=== PATIENT | female | born 1970 | race Caucasian/White ===

== ENCOUNTER 2023-08-05 11:33 | Emergency (ER) | payer SELFPAY ==
[~2023-08-05] VITALS: Ht 172.7 cm; Wt 81.6 kg
[2023-08-05 11:35] VITALS: BP_SYST 154; PULSE 85; RESP 18; TEMP 98; O2SAT 100
[2023-08-05 12:14] LABS: BASOPHILS % (AUTO) 0.3 % (0.0-2.0); EOSINOPHILS # (AUTO) 0.2 K/uL (0.0-0.4); EOSINOPHILS % (AUTO) 2.1 % (0.0-4.0); HEMATOCRIT 28.6 % (36-48); HEMOGLOBIN 8.9 g/dL (12.0-16.0); LYMPHOCYTES # (AUTO) 0.7 K/uL (1.0-5.5); LYMPHOCYTES % (AUTO) 8.9 % (20.5-51.5); MEAN CORPUSCULAR HEMOGLOBIN 27 pg (27-31); MEAN CORPUSCULAR HGB CONC 31 % (32-36); MEAN CORPUSCULAR VOLUME 88 fL (79.0-98.0); MONOCYTES # (AUTO) 0.6 K/uL (0.0-1.0); MONOCYTES % (AUTO) 7.8 % (1.7-9.3); NEUTROPHILS # (AUTO) 6.6 K/uL (1.8-7.7); NEUTROPHILS % (AUTO) 80.9 % (40.0-70.0); PLATELET COUNT (AUTO) 269 K/uL (130-430); RED BLOOD CELL COUNT(AUTO) 3.26 MIL/uL (4.2-6.2); RED CELL DISTRIBUTION WIDTH 15.7 % (9.0-15.0); WHITE BLOOD COUNT (AUTO) 8.1 K/uL (4.8-10.8)
[2023-08-05 12:29] LABS: CALCIUM 10.3 mg/dL (8.4-11.0); CREATININE 3.58 mg/dL (0.55-1.30); POTASSIUM 4.6 mmol/L (3.5-5.1)
[2023-08-05 12:39] LABS: INR 1.1 (0.8-1.2)
[2023-08-05 12:43] LABS: ALBUMIN 3.3 g/dL (3.4-4.8); TOTAL BILIRUBIN 0.2 mg/dL (0.0-1.0); TOTAL PROTEIN, SERUM 6.8 g/dL (6.4-8.3)
[2023-08-05] MEDS ORDERED: HYDROcodone/ACETAMIN 7.5-325 MG TAB PO ONE (13:00)
[2023-08-05] MEDS ORDERED: CLIN-22 PO (13:44)
[2023-08-05] MEDS ORDERED: NACL 0.9% 2,000 ML IV ONE (14:00)
[2023-08-05] MEDS ORDERED: ACETAMINOPHEN 325 MG TABLET PO ONE (14:45)
[2023-08-05 16:46] VITALS: BP_SYST 154; PULSE 85; RESP 18; TEMP 98; O2SAT 100
== END 2023-08-05 16:40 | disposition home or self-care (01) ==
LOC: SED 11:33
DX: L03.211 Cellulitis of face (principal); N19 Unspecified kidney failure; Z85.828 Personal history of other malignant neoplasm of skin; Z79.899 Other long term (current) drug therapy
CPT/HCPCS: 99284; 96360; 70486; 96361; 80053; 85025; 85610; 85730; 36415; 76376; 83605; 82397; J7030